=== PATIENT | female | born 1945 | race Caucasian/White ===

== ENCOUNTER 2019-11-26 05:30 | Day surgery (SDC) | payer BC, MEDICARE ==
[2019-11-25 17:45] LABS: HEMATOCRIT 39.5 % (36-48); LYMPHOCYTES % (AUTO) 23.3 % (21.0-51.0); MEAN CORPUSCULAR HEMOGLOBIN 26.8 pg (27.0-33.0); MEAN CORPUSCULAR HGB CONC 31.4 g/dL (32.0-36.0); MEAN CORPUSCULAR VOLUME 85.3 fL (79-99); MONOCYTES % (AUTO) 11.1 % (3.0-13.0); NEUTROPHILS % (AUTO) 65.4 % (40.0-77.0); PLATELET COUNT (AUTO) 191 K/uL (130-400); RED BLOOD CELL COUNT(AUTO) 4.63 MIL/uL (4.00-5.50); RED CELL DISTRIBUTION WIDTH 13.2 % (11.0-15.5); WHITE BLOOD COUNT (AUTO) 4.9 K/uL (4.8-10.8)
[2019-11-25 18:03] LABS: CREATININE 0.8 mg/dL (0.5-1.5); POTASSIUM 3.6 mmol/L (3.5-5.1)
[2019-11-25 18:14] VITALS: BP 183/87
--- NOTE | 2019-11-25 18:21 | NUR ---
EKG INFORMED DR. BRADFORD OF EKG AND PCP'S CLEARANCE. PROCEED WITH PLANNED PROCEDURE.
--- NOTE | 2019-11-25 19:01 | NUR ---
PER DR WALTERS ABNORMAL EKG OK, NO FURTHER ORDERS.
[~2019-11-26] VITALS: Ht 154.9 cm; Wt 68.8 kg
[2019-11-26] VITALS (24 sets, daily range): BP systolic 102–153; BP diastolic 53–76
[~2019-11-26 05:30] MED LIST: AMLO10TA7 PO; BACL10TA PO; CARB-119 PO; FURO20TA4 PO; LETR2.5T7 PO; LEVO100T12 PO; LOSA100T58 PO; LOVA20TA3 PO; PHARMACY COMMUNICATION MISC SCH; SPIR25TA6 PO; TRAM50TA4 PO
[2019-11-26] MEDS ORDERED: LACTATED RINGERS 1000ML 1,000 ML IV ONE (07:52)
[2019-11-26] MEDS ORDERED: PROPOFOL 10 MG/ML 20ML VIAL IV ONE (09:43)
[2019-11-26] MEDS ORDERED: MIDAZOLAM HCL 1 MG/ML 2ML VIAL ONE (09:43)
[2019-11-26] MEDS ORDERED: ONDANSETRON HCL 4 MG/2 ML VIAL ONE (09:43)
[2019-11-26] MEDS ORDERED: LIDOCAINE PF 2% 5ML ABBOJECT ONE (09:43)
[2019-11-26] MEDS ORDERED: ROCURONIUM 10MG/1ML SYR 10 MG/ML ML ONE (09:44)
[2019-11-26] MEDS ORDERED: FENTANYL CITRATE PF 50 MCG/1 ML 2ML VIAL ONE ×2 (09:59→10:57)
[2019-11-26] MEDS ORDERED: GLYCOPYRROLATE 1 MG/5 ML SYRINGE ONE (11:04)
[2019-11-26] MEDS ORDERED: NEOSTIGMINE 5MG/5ML SYR IV ONE (11:04)
[2019-11-26] MEDS ORDERED: MEPERIDINE-PF 25 MG/ML SYG ONE (11:49)
== END 2019-11-26 13:47 | disposition home or self-care (01) ==
LOC: DAH 05:30
PROVIDERS: ATTEND Obstetrics & Gynecology
DX: K66.0 Peritoneal adhesions (postprocedural) (postinfection) (principal); N83.202 Unspecified ovarian cyst, left side; N95.2 Postmenopausal atrophic vaginitis; I10 Essential (primary) hypertension; E78.5 Hyperlipidemia, unspecified; Z88.0 Allergy status to penicillin; Z88.8 Allergy status to other drugs, medicaments and biological substances; Z88.5 Allergy status to narcotic agent; Z88.2 Allergy status to sulfonamides; Z85.3 Personal history of malignant neoplasm of breast; Z98.890 Other specified postprocedural states; Z79.899 Other long term (current) drug therapy; Z95.0 Presence of cardiac pacemaker; Z83.3 Family history of diabetes mellitus; Z82.49 Family history of ischemic heart disease and other diseases of the circulatory system
CPT/HCPCS: 36415; 49329; 80048; 82948 ×2; 85025; 86850; 86900; 86901; 93005; A4215 ×2; A4221; A4222; A4223; A4351; A4606; A4649; A4663; C1769 ×3; J2001; J2175; J2250; J2405; J2704; J2710; J3010 ×2; J3490; J7030; J7120